=== PATIENT | male | born 1990 | race African-American/Black ===

== ENCOUNTER 2018-02-08 06:56 | Emergency (ER) | payer SELFPAY ==
--- NOTE | 2018-02-08 07:45 | ER Document Report ---
ED GI/ - General Chief Complaint: Urinary Problem Stated Complaint: ABDOMINAL PAIN Time Seen by Provider: 02/08/18 07:13 Mode of Arrival: Ambulatory Information source: Patient Notes: Patient states that whenever he attempted to void this morning he noticed blood in his urine. Patient has had some low back pain and right lower quadrant pain. Patient states presently his pain is almost completely resolved. Patient states a few days ago he had some testicular discomfort but states that that is a normal occurrence for guys sometime depending on their position. Patient denies any fever, nausea or vomiting. Patient denies any concerns about any type of sexually transmitted infection. - HPI Patient complains to provider of: Abdominal pain, Hematuria - This morning, Testicular pain - 2 days ago, none since. No: Vomiting Onset: This morning Timing/Duration: Better Quality of pain: Achy Severity at maximum: Mild Severity in ED: None Pain Level: 0 Location: RLQ Associated symptoms: Hematuria. denies: Diarrhea, Dysuria, Erection problem, Fever, Nausea, Urinary hesitancy, Urinary frequency, Urinary retention, Urinary urgency, Vomiting Exacerbated by: Denies Relieved by: Denies Similar symptoms previously: Yes Recently seen / treated by doctor: No - Related Data Allergies/Adverse Reactions: No Known Allergies Allergy (Verified 02/08/18 07:03) Past Medical History - General Information source: Patient - Social History Smoking Status: Current Every Day Smoker Smoking Education Provided: Yes Frequency of alcohol use: None Drug Abuse: None Occupation: [employer] Lives with: Family Family History: Reviewed & Not Pertinent Patient has suicidal ideation: No Patient has homicidal ideation: No - Medical History Medical History: Negative Renal/ Medical History: Reports: Hx Kidney Stones. Denies: Hx Peritoneal Dialysis Surgical Hx: Negative Review of Systems - Review of Systems Constitutional: No symptoms reported. denies: Fever EENT: No symptoms reported Cardiovascular: No symptoms reported Respiratory: No symptoms reported. denies: Cough, Short of breath Gastrointestinal: Abdominal pain. denies: Diarrhea, Nausea, Vomiting Genitourinary: Hematuria. denies: Dysuria Male Genitourinary: Testicular pain - Several days ago reports a discomfort in scrotum that is normal for men sometimes, none since then Musculoskeletal: Back pain Skin: No symptoms reported Hematologic/Lymphatic: No symptoms reported Neurological/Psychological: No symptoms reported Physical Exam - Vital signs Vitals: Temp Pulse Resp BP Pulse Ox 99.1 F 73 16 139/81 H 99 02/08/18 06:58 02/08/18 06:58 02/08/18 06:58 02/08/18 06:58 02/08/18 06:58 - General General appearance: Appears well, Alert General appearance pediatric: Attentiveness normal In distress: None - HEENT Head: Normocephalic, Atraumatic Eyes: Normal Conjunctiva: Normal Nasal: Normal Mouth/Lips: Normal Mucous membranes: Normal Neck: Normal, Supple. No: Lymphadenopathy - Respiratory Respiratory status: No respiratory distress Chest status: Nontender Breath sounds: Normal. No: Rales, Rhonchi, Stridor, Wheezing Chest palpation: Normal - Cardiovascular Rhythm: Regular Heart sounds: S1 appreciated, S2 appreciated Murmur: No - Abdominal Inspection: Normal Distension: No distension Bowel sounds: Normal Tenderness: Nontender Organomegaly: No organomegaly - Back Back: Normal, Nontender. No: CVA tenderness, Vertebra tenderness - Extremities General upper extremity: Normal inspection, Nontender, Normal strength General lower extremity: Normal inspection, Nontender, Normal strength - Neurological Neuro grossly intact: Yes Cognition: Normal Rachel Coma Scale Eye Opening: Spontaneous Rachel Coma Scale Verbal: Oriented [place] Coma Scale Motor: Obeys Commands - Psychological Associated symptoms: Normal affect, Normal mood - Skin Skin Temperature: Warm Skin Moisture: Dry Skin Color: Normal Course - Re-evaluation Re-evalutation: 02/08/18 09:20 Patient without any acute findings noted on urinalysis and labs or on his CT scan. Patient is insistent that he had hematuria this morning. Patient is refusing any prophylactic treatment for any STDs and is refusing any scrotal examination. PCT Yassine Ge at bedside. Discussed concern about possible torsion or some other pathology that may be causing his symptoms, patient insistent that he will follow-up as needed and would like to be discharged at this time. 02/08/18 10:46 Reviewed the patient's laboratory test results. Attempted to call patient and inform him of his positive chlamydia test results. A message was left on patient's answering machine for him to return a phone call to the ER. - Vital Signs Vital signs: Temp Pulse Resp BP Pulse Ox 97.8 F 92 16 136/95 H 100 02/08/18 09:42 02/08/18 09:42 12/19/18 09:42 02/08/18 09:42 02/08/18 09:42 - Laboratory Result Diagrams: 02/08/18 07:47 02/08/18 07:47 Laboratory results interpreted by me: 02/08/18 02/08/18 07:47 07:47 WBC 3.6 L Lymphocytes % 45.9 H Carbon Dioxide 31 H Glucose 112 H AST 16 L ALT 15 L Labs- Entire Visit 02/08/18 02/08/18 02/08/18 07:47 07:47 07:47 WBC 3.6 L RBC 4.87 Hgb 13.9 Hct 42.6 MCV 88 MCH 28.7 MCHC 32.7 RDW 13.0 Plt Count 191 Seg Neutrophils % 46.8 Lymphocytes % 45.9 H Monocytes % 4.9 Eosinophils % 1.5 Basophils % 0.9 Absolute Neutrophils 1.7 Absolute Lymphocytes 1.7 Absolute Monocytes 0.2 Absolute Eosinophils 0.1 Absolute Basophils 0.0 Sodium 141.7 Potassium 4.3 Chloride 104 Carbon Dioxide 31 H Anion Gap 7 BUN 14 Creatinine 1.00 Est GFR ( Amer) > 60 Est GFR (Non-Af Amer) > 60 Glucose 112 H Calcium 8.5 Total Bilirubin 1.0 Direct Bilirubin 0.3 Neonat Total Bilirubin Not Reportable Neonat Direct Bilirubin Not Reportable Neonat Indirect Bili Not Reportable AST 16 L ALT 15 L Alkaline Phosphatase 38 Total Protein 7.0 Albumin 4.3 Urine Color YELLOW Urine Appearance CLEAR Urine pH 5.0 Ur Specific Conley 1.023 Urine Protein NEGATIVE Urine Glucose (UA) NEGATIVE Urine Ketones NEGATIVE Urine Blood NEGATIVE Urine Nitrite NEGATIVE Urine Bilirubin NEGATIVE Urine Urobilinogen NEGATIVE Ur Leukocyte Esterase NEGATIVE Urine WBC (Auto) 3 Urine RBC (Auto) 2 U Hyaline Cast (Auto) 1 Urine Mucus (Auto) RARE Urine Ascorbic Acid NEGATIVE - Diagnostic Test Radiology reviewed: Reports reviewed Discharge - Discharge Clinical Impression: Urinary symptom or sign Abdominal pain Qualifiers: Abdominal location: right lower quadrant Qualified Code(s): R10.31 - Right lower quadrant pain Condition: Stable Disposition: HOME, SELF-CARE Instructions: Abdominal Pain ([facility]), Observation for Appendicitis ([facility]) Additional Instructions: Return immediately for any new or worsening symptoms Followup with your primary care provider, call tomorrow to make a followup appointment Follow-up with urology for further evaluation, call today for an appointment [facility] Address: [address] [place] [address], [place] [address] Forms: Smoking Cessation Education Referrals: [facility] [Provider Group] - Follow up as needed
[2018-02-08 08:33] LABS: ABSOLUTE EOSINOPHILS # (AUTO) 0.1 10^3/uL (0.0-0.6); ABSOLUTE LYMPHOCYTES (AUTO) 1.7 10^3/uL (0.5-4.7); ABSOLUTE MONOCYTES (AUTO) 0.2 10^3/uL (0.1-1.4); ABSOLUTE NEUT (AUTO) 1.7 10^3/uL (1.7-8.2); BASOPHILS % (AUTO) 0.9 % (0-2); EOSINOPHILS % (AUTO) 1.5 % (0-6); HEMATOCRIT 42.6 % (37.9-51.0); HEMOGLOBIN 13.9 g/dL (13.5-17.0); LYMPHOCYTES % (AUTO) 45.9 % (13-45); MEAN CORPUSCULAR HEMOGLOBIN 28.7 pg (27.0-33.4); MEAN CORPUSCULAR HGB CONC 32.7 g/dL (32.0-36.0); MEAN CORPUSCULAR VOLUME 88 fl (80-97); MONOCYTES % (AUTO) 4.9 % (3-13); PLATELET COUNT 191 10^3/uL (150-450); RED BLOOD COUNT 4.87 10^6/uL (4.35-5.55); SEGMENTED NEUTROPHILS % (AUTO) 46.8 % (42-78); TOTAL CELLS COUNTED % (AUTO) 100 %; WHITE BLOOD COUNT 3.6 10^3/uL (4.0-10.5)
[2018-02-08 08:36] LABS: APPEARANCE,URINE CLEAR; BILIRUBIN,URINE NEGATIVE (NEGATIVE); COLOR,URINE YELLOW; GLUCOSE, URINE NEGATIVE (NEGATIVE); KETONES,URINE NEGATIVE (NEGATIVE); LEUKOCYTE ESTERASE,URINE NEGATIVE (NEGATIVE); NITRITE,URINE NEGATIVE (NEGATIVE); PROTEIN,URINE NEGATIVE (NEGATIVE); URINE SPECIFIC GRAVITY 1.023; UROBILINOGEN,URINE NEGATIVE mg/dL (<2.0)
[2018-02-08 08:43] LABS: ALANINE AMINOTRANSFERASE 15 U/L (21-72); ALBUMIN 4.3 g/dL (3.5-5.0); ALKALINE PHOSPHATASE 38 U/L (38-126); ANION GAP 7 (5-19); ASPARTATE AMINO TRANSFERASE 16 U/L (17-59); BILIRUBIN,DIRECT 0.3 mg/dL (0.0-0.4); BLOOD UREA NITROGEN 14 mg/dL (7-20); CALCIUM 8.5 mg/dL (8.4-10.2); CARBON DIOXIDE 31 mmol/L (22-30); CHLORIDE 104 mmol/L (98-107); GLUCOSE 112 mg/dL (75-110); POTASSIUM 4.3 mmol/L (3.6-5.0); SODIUM 141.7 mmol/L (137-145)
--- NOTE | 2018-02-08 08:58 | RADIOLOGY REPORT (SQ) ---
EXAM DESCRIPTION: CT LTD RENAL STONE PROTOCOL ON COMPLETED DATE/TIME: 02/08/2018 8:45 am REASON FOR STUDY: hematuria, RLQ COMPARISON: None. TECHNIQUE: CT scan of the abdomen and pelvis performed without intravenous or oral contrast. Images reviewed with lung, soft tissue, and bone windows. Reconstructed coronal and sagittal MPR images revi ewed. All images stored on PACS. All CT scanners at this facility use dose modulation, iterative reconstruction, and/or weight based d osing when appropriate to reduce radiation dose to as low as reasonably achievable (ALARA). [facility]: Dose Right [facility]: CareDose [facility]: Dose Right [facility]: Teradose 4D [facility]: Smart [employer] Mobile RADIATION DOSE: CT Rad equipment meets quality standard of care and radiation dose reduction techniq ues were employed. CTDIvol: 6.8 mGy. DLP: 376 mGy-cm.mGy. LIMITATIONS: None. FINDINGS: LOWER CHEST: No significant findings. No nodules or infiltrates. NON-CONTRASTED LIVER, SPLEEN, ADRENALS: Evaluation limited by lack of IV contrast. No identified sign ificant masses. PANCREAS: No masses. No peripancreatic inflammatory changes. GALLBLADDER: No identified stones by CT criteria. No inflammatory changes to suggest cholecystitis. RIGHT KIDNEY AND URETER: No suspicious masses. Assessment limited by lack of IV contrast. No signif icant calcifications. No hydronephrosis or hydroureter. LEFT KIDNEY AND URETER: No suspicious masses. Assessment limited by lack of IV contrast. No signifi cant calcifications. No hydronephrosis or hydroureter. AORTA AND RETROPERITONEUM: No aneurysm. No retroperitoneal masses or adenopathy. BOWEL AND PERITONEAL CAVITY: No obvious masses or inflammatory changes. No free fluid. APPENDIX: Normal. PELVIS, BLADDER, AND ABDOMINAL WALL:No abnormal masses. No free fluid. Bladder normal. BONES: No significant findings. OTHER: No other significant finding. IMPRESSION: Normal noncontrast CT examination of the abdomen and pelvis. Normal appendix in the rig ht lower quadrant. No evidence of urinary tract calculus or hydronephrosis. COMMENT: Quality ID # [id number]: Final reports with documentation of one or more dose reduction techniques (e.g., Automated exposure control, adjustment of the mA and/or kV according to patient size, use of iterative reconstruction technique) TECHNICAL DOCUMENTATION: JOB ID: [id number] 7044[employer]- All Rights Reserved Reading location - IP/workstation name: [email or web address]
[2018-02-08 09:42] VITALS: BP 136/95
[2018-02-08 10:16] LABS: CHLAM PCR DETECTED (NOT DETECT); GON PCR NOT DETECTED (NOT DETECT)
== END 2018-02-08 09:42 | disposition home or self-care (01) ==
LOC: ER 06:56
DX: R31.0 Gross hematuria (principal); A74.9 Chlamydial infection, unspecified; M54.5 Low back pain; R10.31 Right lower quadrant pain; F17.200 Nicotine dependence, unspecified, uncomplicated; Z87.442 Personal history of urinary calculi
CPT/HCPCS: 36415; 76380; 80053; 81001; 85025; 87491; 87591; 99284

== ENCOUNTER 2018-06-13 17:45 | Emergency (ER) | payer SELFPAY ==
[2018-06-13 18:19] VITALS: BP 117/64
--- NOTE | 2018-06-13 18:58 | ER Document Report ---
ED Medical Screen (RME) - General Chief Complaint: Fall Injury Stated Complaint: FALL/LEFT ARM PAIN, BACK PAIN Time Seen by Provider: 06/13/18 18:20 Information source: Patient Notes: Provider return to room after patient was changed into a gown. Provider attempted to examine patient. Patient became hostile cussing at provider being uncooperative with exam. Patient declines to allow provider to examine upper extremity. Provider asked patient not to cuss and treat me with this respect as this is not how I was treating him. Patient states that he already told me that his arm hurts and that I am only attempting to make his arm hurt on purpose. Provider offered having another provider to see patient, patient prefers to have a different provider at this time. TRAVEL OUTSIDE OF THE [place] IN LAST 30 DAYS: No - Related Data Allergies/Adverse Reactions: No Known Allergies Allergy (Verified 06/13/18 18:16) Past Medical History Renal/ Medical History: Reports: Hx Kidney Stones. Denies: Hx Peritoneal Dialysis Past Surgical History: Reports: Hx Urinary Tract Surgery Physical Exam - Vital signs Vitals: Temp Pulse Resp BP Pulse Ox 98 F 77 20 117/64 100 06/13/18 18:17 06/13/18 18:17 06/13/18 18:17 06/13/18 18:17 06/13/18 18:17 - Back Back: Vertebra tenderness - Thoracolumbar midline tenderness Course - Vital Signs Vital signs: Temp Pulse Resp BP Pulse Ox 98 F 77 20 117/64 100 06/13/18 18:17 06/13/18 18:17 06/13/18 18:17 06/13/18 18:17 06/13/18 18:17
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
[2018-06-13] MEDS ORDERED: KETOROLAC TROMETHAMINE INJ/PF 30 MG/1 ML SDV IM ONE (20:13)
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
== END 2018-06-13 20:36 | disposition left against medical advice (07) ==
LOC: ER 17:45
DX: S09.90XA Unspecified injury of head, initial encounter (principal); M25.522 Pain in left elbow; M25.422 Effusion, left elbow; M54.5 Low back pain; M79.602 Pain in left arm; M54.9 Dorsalgia, unspecified; W19.XXXA Unspecified fall, initial encounter; F17.200 Nicotine dependence, unspecified, uncomplicated
CPT/HCPCS: 72110; 99282

== ENCOUNTER 2018-10-08 22:20 | Emergency (ER) | payer SELFPAY ==
--- NOTE | 2018-10-09 00:04 | ER Document Report ---
ED General - General Chief Complaint: Groin Pain Stated Complaint: LOWER ABDOMINAL PAIN Time Seen by Provider: 10/08/18 23:52 Notes: 28-year male presents with right groin/buttock pain, worse when he moves his leg onset a week ago has been intermittent since then. Does not radiate to the back or genitals. He thinks something is wrong with his kidneys but is not been having hematuria and says every time he comes to "be in a cup" of eating is normal. Denies vomiting or abdominal pain denies anorexia. He has not injured himself. TRAVEL OUTSIDE OF THE [place] IN LAST 30 DAYS: No - Related Data Allergies/Adverse Reactions: No Known Allergies Allergy (Verified 06/13/18 18:16) Past Medical History - Social History Smoking Status: Never Smoker Family History: Reviewed & Not Pertinent Renal/ Medical History: Reports: Hx Kidney Stones. Denies: Hx Peritoneal Dialysis Past Surgical History: Reports: Hx Urinary Tract Surgery Review of Systems - Review of Systems Notes: REVIEW OF SYSTEMS GEN: Denies fever, chills, weight loss ENT: Denies sore throat, nasal discharge, ear pain EYES: Denies blurry vision, eye pain, discharge CV: Denies chest pain, palpitations, edema RESP: Denies cough, shortness of breath, wheezing GI: Denies abdominal pain, nausea, vomiting, diarrhea MSK: Right pelvic/buttock pain SKIN: Denies rash, skin lesions LYMPH: Denies swollen glands/lymph nodes NEURO: Denies headache, focal weakness or numbness, dizziness PSYCH: Denies depression, suicidal or homicidal ideation PHYSICAL EXAMINATION General: No acute distress, well-nourished Head: Atraumatic, normocephalic ENT: Mouth normal, oropharynx moist, no exudates or tonsillar enlargement Eyes: Conjunctiva normal, pupils equal, lids normal Neck: No JVD, supple, no guarding CVS: Normal rate, regular rhythm, no murmurs Resp: No resp distress, equal and normal breath sounds bilaterally GI: Nondistended, soft, no tenderness to palpation, no rebound or guarding and normal groin without hernia. Ext: There is to palpation without mass along the area posterior inferior to the anterior superior iliac spine, attachment of the buttock/lateral thigh muscles to the pelvis. Pain with leg movement as well. Back: No CVA or midline TTP Skin: No rash, warm Lymphatic: No lymphadeopathy noted Neuro: Awake, alert. Face symmetric. GCS 15. Physical Exam - Vital signs Vitals: Temp Pulse Resp BP Pulse Ox 98.4 F 77 12 154/85 H 98 10/08/18 22:33 10/08/18 22:33 10/08/18 22:33 10/08/18 22:33 10/08/18 22:33 Course - Re-evaluation Re-evalutation: 10/09/18 00:01 Patient presents with what appears to be pain along the attachment of his thigh muscle to the pelvis. The pain is definitely below the inguinal ligament, not in the groin and not in the abdomen. He is very concerned about his kidneys and so I offered him a UA and a CT scan however he needs to get to work and wants to leave. We will start him on ibuprofen and a muscle relaxer and see if that improves and also recommended heat packs. If he does not improve he will come back and get a further work-up. I have discussed with the patient there likely diagnosis, aftercare plan, follow-up plans and my usual and customary return precautions. They verbalized understanding of this. - Vital Signs Vital signs: Temp Pulse Resp BP Pulse Ox 98.4 F 77 12 154/85 H 98 10/08/18 22:33 10/08/18 22:33 10/08/18 22:33 10/08/18 22:33 10/08/18 22:33 Discharge - Discharge Clinical Impression: Buttock pain Condition: Good Disposition: HOME, SELF-CARE Instructions: Muscle Strain ([facility]) Additional Instructions: Your pain appears to be muscular in nature however we did not fully evaluate your kidneys because she did not stay for a CAT scan and urine test. If you change your mind may return to the ER anytime for further testing and treatment. Prescriptions: Ibuprofen [Ibu] 400 mg PO Q6HP PRN #14 tablet PRN Reason: Methocarbamol [Robaxin 750 mg Tablet] 750 mg PO Q4 #40 tablet
[2018-10-09 00:14] VITALS: BP 146/91
== END 2018-10-09 00:15 | disposition home or self-care (01) ==
LOC: ER 22:20
DX: M79.10 Myalgia, unspecified site (principal); R10.30 Lower abdominal pain, unspecified
CPT/HCPCS: 99283

== ENCOUNTER 2018-12-27 17:05 | Emergency (ER) | payer SELFPAY ==
[2018-12-27 17:12] VITALS: BP 142/90
--- NOTE | 2018-12-27 17:47 | ER Document Report ---
HPI - HPI Patient complains to provider of: sore throat Time Seen by Provider: 12/27/18 17:27 Onset: Yesterday Onset/Duration: Gradual Quality of pain: Achy Context: Patient presents complaining sore throat started yesterday. Patient reports subjective fever. Patient also complains of left eye redness and drainage for the past week. Patient denies any use of glasses or contact lenses. Patient denies any change in vision. Patient also complains of lymph nodes behind the right ear. Associated Symptoms: Earache, Fever, Sore throat, Other - Left eye redness. de nies: Nonproductive cough Exacerbated by: Denies Relieved by: Denies Similar symptoms previously: No Recently seen / treated by doctor: No - ROS ROS below otherwise negative: Yes Systems Reviewed and Negative: Yes All other systems reviewed and negative - CONSTITUTIONAL Constitutional: REPORTS: Fever - EENT EENT: REPORTS: Sore Throat, Ear Pain, Eye problems. DENIES: Congestion - NEURO Neurology: DENIES: Headache - RESPIRATORY Respiratory: DENIES: Coughing - GASTROINTESTINAL Gastrointestinal: DENIES: Nausea, Patient vomiting - DERM Skin Color: Normal Skin Problems: Rash - To scalp Past Medical History - General Information source: Patient - Social History Smoking Status: Current Every Day Smoker Smoking Education Provided: Yes Frequency of alcohol use: Occasional Drug Abuse: None Occupation: [employer] installer Family History: Reviewed & Not Pertinent Renal/ Medical History: Reports: Hx Kidney Stones. Denies: Hx Peritoneal Dialysis Past Surgical History: Reports: Hx Urinary Tract Surgery Vertical Provider Document - CONSTITUTIONAL Agree With Documented VS: Yes Exam Limitations: No Limitations General Appearance: WD/WN, No Apparent Distress - INFECTION CONTROL TRAVEL OUTSIDE OF THE [place] IN LAST 30 DAYS: No - HEENT HEENT: Atraumatic, Normocephalic, Pharyngeal Tenderness, Pharyngeal Erythema. negative: Pharyngeal Exudate, Tympanic Membrane Red, Tympanic Membrane Bulging Notes: Right posterior auricular lymphadenopathy Sclera of left eye injected with mild purulent drainage to the lower eyelid, no corneal abrasion, ulcer, foreign body or dendrite. Extraocular movements intact. No pain with eye movement. - NECK Neck: Normal Inspection, Supple. negative: Lymphadenopathy-Left, Lymphadenopathy-Right - RESPIRATORY Respiratory: Breath Sounds Normal, No Respiratory Distress - CARDIOVASCULAR Cardiovascular: Regular Rate, Regular Rhythm - BACK Back: Normal Inspection - MUSCULOSKELETAL/EXTREMETIES Musculoskeletal/Extremeties: MAEW - NEURO Level of Consciousness: Awake, Alert, Appropriate Motor/Sensory: No Motor Deficit - DERM Integumentary: Warm, Dry, Rash - Scalp folliculitis with crusting and pustular lesion Course - Re-evaluation Re-evalutation: 12/27/18 17:54 Patient rapid strep test negative, no concern for peritonsillar abscess. Patient will be treated on cephalexin but this is to treat the folliculitis noted to the scalp area. Patient will also be given topical antibiotic eyedrops for the conjunctivitis. - Vital Signs Vital signs: Temp Pulse Resp BP Pulse Ox 99.8 F 86 18 142/90 H 100 12/27/18 17:11 12/27/18 17:11 12/27/18 17:11 12/27/18 17:11 12/27/18 17:11 - Laboratory Laboratory results interpreted by me: 12/27/18 17:54 Labs- Entire Visit 12/27/18 17:18 Group A Strep Rapid NEGATIVE Discharge - Discharge Clinical Impression: Folliculitis, Sore throat Conjunctivitis Qualifiers: Conjunctivitis type: acute Acute conjunctivitis type: unspecified Laterality: left Qualified Code(s): H10.32 - Unspecified acute conjunctivitis, left eye Condition: Stable Disposition: HOME, SELF-CARE Instructions: Antibiotic Therapy ([facility]), Conjunctivitis ([facility]), Folliculitis ([facility]), Sore Throat ([facility]) Additional Instructions: Return immediately for any new or worsening symptoms Followup with your primary care provider, call tomorrow to make a followup appo intment Follow-up with physician intensivist for recheck, call tomorrow for an appointment Instill Polytrim 1 drop to left eye every 6 hours for the next 5 days. Prescriptions: Cephalexin Monohydrate [Keflex 500 mg Capsule] 500 mg PO Q6H 5 Days capsule Naproxen [Naprosyn 250 Nmg Tablet] 1 tab PO BID #14 tablet Forms: Smoking Cessation Education, Return to Work Referrals: [facility] [Provider Group] - Follow up as needed
[2018-12-27] MEDS ORDERED: POLYMYXIN B SULFATE/TMP OPH SOLN (10 ML/ER DISP) OS PRN (17:55)
[2018-12-27] MEDS ORDERED: CEPHALEXIN 500 MG CAPSULE PO ONE (17:56)
== END 2018-12-27 18:16 | disposition home or self-care (01) ==
LOC: ER 17:05
DX: L73.9 Follicular disorder, unspecified (principal); J02.9 Acute pharyngitis, unspecified; H10.32 Unspecified acute conjunctivitis, left eye; R50.9 Fever, unspecified; F17.200 Nicotine dependence, unspecified, uncomplicated; Z87.442 Personal history of urinary calculi
CPT/HCPCS: 87070; 87880; J3490; 87077